=== PATIENT | male | born 1940 | race Two or more races ===

== ENCOUNTER → 2024-02-16 | Outpatient (CLI) | payer OTHER | END | disposition home or self-care (01) | LOC: EEVIPCON 10:25 → XYW 10:25 | PROVIDERS: ATTEND Internal Medicine | DX: I08.3 Combined rheumatic disorders of mitral, aortic and tricuspid valves (principal); I25.10 Atherosclerotic heart disease of native coronary artery without angina pectoris; I70.0 Atherosclerosis of aorta | CPT/HCPCS: 93306 ==

== ENCOUNTER 2024-09-06 11:37 | Inpatient (IN) | payer OTHER, MEDICARE ==
[2024-09-06 15:50] VITALS: PULSE 61; RESP 20; O2SAT 95
[2024-09-06] MEDS ORDERED: NITROGLYCERIN 0.4 MG SL TAB SL PRN (16:15)
[2024-09-06] MEDS ORDERED: MORPHINE SULFATE INJ 2 MG/ml SYRG IV PRN (16:15)
[2024-09-06 17:00] VITALS: BP 140/74; PULSE 62; RESP 16; TEMP 98; O2SAT 95
[2024-09-06 17:13] LABS: Basophils # (auto) 0 10 ^3/uL (0-0.2); Basophils % (auto) 0.9 % (0.0-2.0); Eosinophils # (auto) 0.1 10 ^3/uL (0-0.8); Eosinophils % (auto) 2.6 % (0.0-7.0); Hematocrit 43.1 % (41.0-53.0); Hemoglobin 14.4 g/dL (13.5-17.5); Lymphocytes # (auto) 0.9 10 ^3/uL (0.4-5.4); Lymphocytes % (auto) 19.1 % (10.0-50.0); Mean Corpuscular Hemoglobin 29.3 pg (28.0-32.0); Mean Corpuscular Hgb Conc. 33.5 g/dL (32.0-36.0); Mean Corpuscular Volume 87.4 fL (80.0-100.0); Monocytes # (auto) 0.5 10 ^3/uL (0-1.3); Monocytes % (auto) 11.1 % (0.0-12.0); Neutrophils # (auto) 3.2 10 ^3/uL (1.6-8.6); Neutrophils % (auto) 66.3 % (37.0-80.0); Nucleated Red Blood Cells % 0.1 %; Platelet Count (auto) 164 10^3/uL (140-450); Red Blood Cells 4.93 10^6/uL (4.5-5.90); Red Cell Distribution Width 14.3 % (11.8-14.3); White Blood Cell 4.8 10^3/uL (4.4-10.8)
[2024-09-06 17:16] LABS: Anion Gap 9 (5-15); Carbon Dioxide 30 mmol/L (20-31)
[2024-09-06 17:17] LABS: Calcium 10.2 mg/dL (8.7-10.4); Chloride 108 mmol/L (98-107); Sodium 147 mmol/L (136-145)
[2024-09-06 17:22] LABS: BUN/Creatinine Ratio 21.6 (10.0-20.0)
[2024-09-06 17:24] LABS: Blood Urea Nitrogen 25 mg/dL (9-23); Glucose 127 mg/dL (74-106)
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
--- NOTE | 2024-09-06 19:24 | DVH ---
CHEST RADIOGRAPH Indication: chest pain Technique: Single frontal view of the chest was obtained COMPARISON: None FINDINGS: Lines and Tubes: None Lungs: Clear Pleura: No effusion. No pneumothorax. Cardiomediastinal contours: Unremarkable Bones: Unremarkable IMPRESSION: No acute disease.
[2024-09-06 20:00] VITALS: PULSE 67
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
[2024-09-06 21:03] VITALS: BP 135/69; PULSE 64; RESP 20; TEMP 98; O2SAT 100
[2024-09-06] MEDS: ATORVASTATIN 20 MG TAB PO SCH (22:26)
[2024-09-07 01:00] VITALS: BP 121/59; PULSE 61; RESP 20; TEMP 98.2; O2SAT 92
[2024-09-07 04:49] VITALS: BP 119/65; PULSE 58; RESP 20; TEMP 98; O2SAT 94
--- NOTE | 2024-09-07 07:07 | ECG ---
[facility] Test Date: 2024-09-06 Test Time: 16:51:15 Pat Name: SHAYY ZAFAR Department: Room: [facility]5T A Gender: M Slide Maker: ezequiel : 1940 Requested By: ALFA DIANA Order Number: [id number] Reading MD: Jayson Almaraz Measurements Intervals Ryan Rate: 59 P: -70 NC: 352 QRS: -83 QRSD: 147 T: 32 QT: 434 QTc: 430 Interpretive Statements Sinus or ectopic atrial rhythm Prolonged NC interval RBBB and LAFB Electronically Signed On 09-07-2024 9:08:49 PDT by Jayson Almaraz Please click the below link to view image of tracing.
[2024-09-07] MEDS ORDERED: REGADENOSON 0.4 MG/5 ML SYRG IV ONE (08:00)
[2024-09-07] MEDS: CHLORTHALIDONE 25 MG TAB PO SCH (08:00)
[2024-09-07 09:26] VITALS: BP 139/74; PULSE 54; RESP 16; TEMP 98.2; O2SAT 94
[2024-09-07] MEDS: ASPirin 81 mg TAB PO SCH (09:43)
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
--- NOTE | 2024-09-07 13:12 | DVHSR ---
APPROVED REPORT EXAM: Two-dimensional and M-mode echocardiogram with Doppler and color Doppler. Blood Pressure: 119/65 mmHg INDICATION Eval cardiac function RISK FACTORS Height: 64, Weight: 144 DIMENSIONS LVDd5.2 (3.8-5.7cm)LA (2D)4.6 (1.9-4.0cm)Aortic Root4.0 (2.0-3.7cm) LVDs3.4 (2.5-4.0cm)LA (MM) (1.9-4.0cm)Aortic Cusp Exc1.8 (1.5-2.0cm) EF (%) 62.0 (55-70%)Rt. Atrium (1.9-4.0cm)Asc. Aorta cm IVSd1.1 (0.7-1.1cm)RV (D) (1.8-2.4cm) PWd1.6 (0.7-1.1cm) Mitral Valve MitralMitral Stenosis E wave0.61m/sMV Mean GR.mmHg A wave0.65m/sMV Peak GR.150mmHg E/A ratio0.92D MVAcm2 DECEL [id number] 1/2 Timems Aortic Valve Aortic ValveAortic Stenosis V11.01m/Danica Mean GR.3mmHg V21.18m/Danica Peak GR.6mmHg LVOT Diameter1.8 (1.8-2.4cm)Doppler AVA2.18cm2 AI P 1/2 [id number] Pulmonic Valve V21.37m/s Tricuspid Valve TR Velocity2.37m/s [id number] Other Information Technically limited study due to body habitus. Conclusion lvef 60% by visual estimate moderate to severe LVH normal rv function left atrium enlarged moderate mild aortic regurg mild mitral regurg
--- NOTE | 2024-09-07 18:34 | DVHDS ---
DATE OF DISCHARGE: 09/07/2024 ATTENDING PHYSICIAN: Alex Arenas MD CHIEF COMPLAINT ON ADMISSION: Chest pain. HISTORY OF PRESENT ILLNESS: An 83-year-old male, [facility] inmate, who was seen in the cardiac clinic with a complaint of chest pain. Due to the nature of symptoms and description of symptoms, the patient was advised for admission and cardiac workup. ADMITTING DIAGNOSIS: Chest pain, rule out coronary artery disease. HOSPITAL COURSE: He was admitted to telemetry. Started on a regular diet. His field troponins obtained were negative. Blood count was negative. Chemistries were also normal and thyroid was normal. Prior to hospital workup, the patient signed AMA. DISCHARGE DIAGNOSIS: Chest pain. MD IRIS Carvajal/CODIE/JANET TID: [id number] RECEIPT: [id number]
[2024-09-08] MEDS ORDERED: ENOXAPARIN SOD 30 MG/0.3 ML SYRINGE SC SCH (10:00)
== END 2024-09-07 12:21 | disposition left against medical advice (07) | DRG 303 ==
LOC: OVERFLOW 11:37 → UNDOADMIN 11:37 → TELE-WESTW 15:55 → EEVIPCON 15:55
PROVIDERS: ADMIT Internal Medicine; ATTEND Internal Medicine
DX: I25.10 Atherosclerotic heart disease of native coronary artery without angina pectoris (principal); I35.1 Nonrheumatic aortic (valve) insufficiency; E78.5 Hyperlipidemia, unspecified; I10 Essential (primary) hypertension; Z96.641 Presence of right artificial hip joint; Z53.29 Procedure and treatment not carried out because of patient's decision for other reasons; I44.0 Atrioventricular block, first degree; R73.03 Prediabetes; I45.10 Unspecified right bundle-branch block; H91.90 Unspecified hearing loss, unspecified ear; R00.1 Bradycardia, unspecified; I25.2 Old myocardial infarction; Z82.49 Family history of ischemic heart disease and other diseases of the circulatory system
CPT/HCPCS: 36415; 71045; 80048; 80061; 83036; 83735; 84443; 84484; 85025; 87081; 93005; 93306; G0378